=== PATIENT | female | born 1960 | race Caucasian/White ===

== ENCOUNTER 2024-05-31 19:11 | Emergency (ER) | payer MEDICARE, SELFPAY ==
[2024-05-31 19:16] VITALS: BP 123/80
[2024-05-31 21:43] VITALS: BP 138/74
[2024-05-31] MEDS: TYLENOL 650 MG PO (22:26)
[2024-05-31] MEDS: ADACEL 0.5 ML IM (22:52)
--- NOTE | 2024-05-31 23:01 | ED.SKININJ ---
HPI-Injury
General
Chief Complaint: Skin Surface Trauma
Source: patient
Exam Limitations: none
Time Seen by Provider: 05/31/24 22:34
Nursing documentation reviewed up to this point in time: agreed with
History of Present Illness-Injury
Is this injury a work related problem?: No
Is pt an associate of [facility]?: No
Initial Injury comments:
Accidentally cut finger with knife while cooking Sustained a laceration to left thumb. Injury occurred just ENV[employer]IAN
Past History
Past History
ED Past Medical History: None; Negative Asthma, HTN, Hypercholesterolemia or NIDDM
ED Past Surgical History: Appendectomy (Possible), Cholecystectomy, Gynecological (Hysterectomy) and Other (gastric bypass)
Social History
Tobacco: Non-smoker
Alcohol: None
Personal:
Living: with family
Review of Systems
Review of Systems
Allergies reviewed?: Yes
All Other Systems: ROS reviewed and negative except as documented in HPI and ROS
Constitutional: Reports no symptoms
Musculoskeletal: Reports no symptoms
Skin: Reports other (Laceration to left distal thumb)
Neurological: Reports no symptoms
Psychiatric: Reports no symptoms
Skin Exam
Laceration
Left Distal Thumb:
Length in cm: 1.5
Orientation: C shaped
Type of Laceration: simple
Any active bleeding?: no active bleeding
Distal skin color and temperature: normal-warm & good color
Normal distal neurovascular exam: Yes
Range of motion: full
Phy Exam
General Physical Exam
General Presentation: well appearing and no apparent distress
General age: appears stated age
General Skin: warm and dry
General Habitus: normal
Musculoskeletal Exam
Musculoskeletal Exam: full ROM and neuro vasc intact
Skin Exam
Skin Exam: normal color, warm/dry and no rash
Psychiatric Exam
Psychiatric Exam: normal mood/affect
Course
Orders/Labs/Results
Orders:
Orders
05/31/24 22:22
CR Hand - Left 2 Views Urgent
Comment:
Reason For Exam: foreign body
05/31/24 22:23
Acetaminophen [Tylenol] 650 mg PO NOW STA
05/31/24 22:46
Tetanus/Diphth/Acelpertussis [Adacel] 0.5 ml IM .ONCE ONE
Vital Signs
Initial and Last Documented VS:
Initial Vital Signs
Temp Pulse Resp BP Pulse Ox
98.1 F 79 16 123/80 100
05/31/24 19:16 05/31/24 19:16 05/31/24 19:16 05/31/24 19:16 05/31/24 19:16
Last Documented Vital Signs
Temp Pulse Resp BP Pulse Ox
98.1 F 61 16 138/74 100
05/31/24 21:43 05/31/24 21:43 05/31/24 21:43 05/31/24 21:43 05/31/24 21:43
Procedures
Laceration Closure
Left Distal Thumb:
Status of Wound: clean
Description of Wound Edges: sharp
Preparation: cleaned with saline and cleaned with Betadine
Anesthesia: 1% Lidocaine and Digital-Regional
Revision/Debridement: routine- no revision
Type of Closure: single layer closure
Skin Closure Material: skin soni and 5-0 prolene
*Radiology
Radiology exam reviewed: radiology read reviewed
*Pulse Oximetry
Patient hypoxic: no
*Critical Care Note
Total Time (30-74mins, 75-104mins- exclusive of procedures): Not Applicable
ED Attending Note
-
Portions of this chart may have been created with voice recognition software.� Occasional wrong word or��sound alike� substitutions may have occurred due to the inherent limitations of voice recognition software.
Discharge Plan
Departure
Patient Disposition: Home (Routine Discharge)
Date of Disposition: 05/31/24
Time of Disposition: 22:46
Patient with high blood pressure during this ER visit?: No
Covid-19: Not Applicable
Discharge Problem:
Laceration of thumb
Instructions: Laceration Repair With Stitches (DC)
Prescriptions:
No Action
meclizine 25 MG tablet
25 mg PO Q8HPRN PRN (Reason: Dizziness) Qty: 15 0RF
Activity Restrictions/Additional Instructions:
Sutures can be removed in 7-10 days by your family doctor.
Interventions
Interventions:
*Risk Screen - Suicide Last Done: 05/31/24 19:16
*General Assessment Last Done: 05/31/24 19:16
*Neglect/Abuse Screening Last Done: 05/31/24 19:16
*ED COVID-19 Vaccine History Last Done: 05/31/24 19:16
ED-Skin Assessment Last Done: 05/31/24 22:28
Discharge Date and Time
Print Language: WELSH
== END 2024-05-31 23:06 | disposition home or self-care (01) ==
LOC: EMR 19:11
PROVIDERS: EMERGENCY PHYSICIAN Emergency Medicine; FAMILY PHYSICIAN Family Medicine
DX: S61.012A Laceration without foreign body of left thumb without damage to nail, initial encounter (principal); W26.0XXA Contact with knife, initial encounter; Z23 Encounter for immunization
CPT/HCPCS: 99283; 12001; 90471; 73120; 90715